=== PATIENT | male | born 1940 | race Caucasian/White ===

== ENCOUNTER → 2017-12-17 | Outpatient (CLI) | payer MEDICARE, BC ==
[~2017-12-17] MED LIST: AMOX TR-K CLV1 EAC4 PO; COLACE 2-IN-11 EACH PO; COLACE100 MG PO; COUMADIN 5 MG TA5 M1 PO; DILTIAZEM 24HR180 M3 PO; HUMALOG100 UNIT/1 SUBQ; IPRATROPIU0.2 MG/1 M INH; LACTULOSE20 GM/30 M PO; LASIX 80 MG TAB80 MG PO; LEVALBUTER1.25 MG/0. INH; MIRALAX17 GM PO; ONDANSETRON HCL4 M2 PO; PREDNISONE 20 M20 MG PO; PROTONIX40 M2 PO; ROBITUSSIN100 MG/53 PO; SPIRONOLACTONE25 M1 PO; TESSALON PERLE100 MG PO; TRAMADOL 50 MG50 MG PO; TYLENOL325 MG PO
== END ==
LOC: M.ULTRA 09:54
DX: N18.3 Chronic kidney disease, stage 3 (moderate) (principal)

== ENCOUNTER 2018-05-14 12:23 | Inpatient (IN) | payer MEDICARE, BC ==
[~2018-05-14] VITALS: Ht 172.7 cm; Wt 55.8 kg
[~2018-05-14 12:23] MED LIST changes: -COLACE 2-IN-11 EACH PO; -COLACE100 MG PO; -DILTIAZEM 24HR180 M3 PO; -HUMALOG100 UNIT/1 SUBQ; -IPRATROPIU0.2 MG/1 M INH; -LACTULOSE20 GM/30 M PO; -LASIX 80 MG TAB80 MG PO; -LEVALBUTER1.25 MG/0. INH; -MIRALAX17 GM PO; -ONDANSETRON HCL4 M2 PO; -PREDNISONE 20 M20 MG PO; -PROTONIX40 M2 PO; -ROBITUSSIN100 MG/53 PO; -SPIRONOLACTONE25 M1 PO; -TESSALON PERLE100 MG PO; -TRAMADOL 50 MG50 MG PO; -TYLENOL325 MG PO
[2018-05-14 12:26] VITALS: BP 92/53
[2018-05-14] MEDS ORDERED: DILTIAZEM 24HR180 M3 PO (12:36)
[2018-05-14] MEDS ORDERED: TESSALON PERLE100 MG PO (12:36)
[2018-05-14] MEDS ORDERED: IPRATROPIU0.2 MG/1 M INH (12:37)
[2018-05-14] MEDS ORDERED: ROBITUSSIN100 MG/53 PO (12:37)
[2018-05-14] MEDS ORDERED: LASIX 80 MG TAB80 MG PO (12:37)
[2018-05-14] MEDS ORDERED: COLACE 2-IN-11 EACH PO (12:38)
[2018-05-14] MEDS ORDERED: MIRALAX17 GM PO (12:38)
[2018-05-14] MEDS ORDERED: PREDNISONE 20 M20 MG PO (12:38)
[2018-05-14] MEDS ORDERED: SPIRONOLACTONE25 M1 PO (12:39)
[2018-05-14] MEDS ORDERED: COUMADIN 5 MG TA5 M1 PO (12:39)
[2018-05-14 13:03] LABS: HEMATOCRIT 35.3 % (42.0-52.0); HEMOGLOBIN 11.7 gm/dL (14.0-18.0); MCH 28.9 pg (26.0-34.0); MCV 87.5 fL (80.0-100.0); MPV 8.4 fl. (7.2-11.1); NUCLEATED RBCS 0 /100WBC; PLATELET COUNT* 165 thou/uL (150-400); RBC 4.03 mil/uL (4.50-6.00); RDW-CV 17.3 % (10.5-14.5); WBC 10.2 thou/uL (4.0-11.0)
[2018-05-14 13:11] LABS: PROTIME 66.3 Seconds (9.20-11.50)
[2018-05-14 13:13] LABS: ANION GAP < 0 mmol/L (7-16); BUN 33 mg/dL (7-18); CALCIUM 9.1 mg/dL (8.5-10.1); CHLORIDE 96 mmol/L (98-107); CO2 43 mmol/L (21-32); GLUCOSE 102 mg/dL (70-99); POTASSIUM 4.7 mmol/L (3.5-5.1); SODIUM 136 mmol/L (136-145)
[2018-05-14 13:18] LABS: INR 6.6
[2018-05-14 13:25] LABS: ABSOLUTE EOSINOPHILS 0.1 thou/uL (0.0-0.7); ABSOLUTE LYMPHOCYTES 0.2 thou/uL (0.8-5.3); ABSOLUTE MONOCYTES 0.2 thou/uL (0.0-1.2); ABSOLUTE NEUTROPHILS 9.7 thou/uL (1.6-8.1); ANISOCYTOSIS 1+; PLATELET ESTIMATE ADEQUATE; POIKILOCYTOSIS 1+
[2018-05-14 13:26] LABS: ALBUMIN 2.9 g/dL (3.4-5.0); ALKALINE PHOSPHATASE 234 U/L (46-116); NT-PRO BRAIN NAT PEPTIDE 2124 pg/mL (<300); SGOT 33 U/L (15-37); SGPT 77 U/L (30-65); TOTAL BILIRUBIN 3.2 mg/dL (<0.1-1.0); TOTAL PROTEIN 7.6 g/dL (6.4-8.2); TROPONIN-I LEVEL 0.17 ng/mL (<0.06)
--- NOTE | 2018-05-14 15:48 | EKG ---
[place] [address] ELECTROCARDIOGRAM REPORT Name: CONCEPCION DELEON Gabi Room: [place] [address] ADM IN .R.#: [id number] Admission: 05/14/18 Attend Phys: Gera Castillo MD Discharge: Date of : 38 Report #: [id number] THIS REPORT FOR: //name// [facility] ED Test Date: 2018-05-14 Test Time: 12:32:31 Pat Name: CONCEPCION DELEON Department: Room: [facility] Gender: Mixer Helper: Jacob GAN : 1940 Requested By: Eduardo Reynoso Order Number: [id number] MD: Marquis Tabor Measurements Intervals [place] Rate: 81 P: OK: QRS: 24 QRSD: 95 T: 176 QT: 348 QTc: 404 Interpretive Statements Atrial fibrillation Probable LVH with secondary repol abnrm Inferior infarct, old Baseline wander in lead(s) V5,V6 Compared to ECG 05/04/2015 14:00:28 Sinus rhythm no longer present Electronically Signed On 05-14-2018 15:48:25 CDT by Marquis Tabor [email or web address] <ELECTRONICALLY SIGNED> By: Marquis Tabor MD, [facility] 05/14/18 1548 1232 1232 Marquis Tabor MD, [facility] /EPI
[2018-05-14 17:08] VITALS: BP 113/55
[2018-05-14 17:30] VITALS: BP 109/49
[2018-05-14 20:00] VITALS: BP 122/35
[2018-05-14 20:52] LABS: BE 13.7 mmol/L (-2 to +3); pH 7.347 (7.340-7.450)
[2018-05-14 20:54] LABS: PCO2 79.8 mmHg (35.0-45.0); PO2 149.2 mmHg (75.0-100.0)
[2018-05-14 20:55] LABS: HCO3 42.8 mmol/L (22.0-26.0)
[2018-05-15] VITALS: BP 135/57
[2018-05-15 04:00] VITALS: BP 153/81
[2018-05-15 04:50] LABS: ABSOLUTE LYMPHOCYTES 0.3 thou/uL (0.8-5.3); ABSOLUTE MONOCYTES 0.1 thou/uL (0.0-1.2); ABSOLUTE NEUTROPHILS 9.6 thou/uL (1.6-8.1); BASOPHILS 0.1 %; HEMATOCRIT 35.5 % (42.0-52.0); HEMOGLOBIN 11.6 gm/dL (14.0-18.0); LYMPHOCYTES 2.5 %; MCH 28.4 pg (26.0-34.0); MCHC 32.7 g/dL (28.0-37.0); MCV 86.8 fL (80.0-100.0); MONOCYTES 1.4 %; NUCLEATED RBCS 0 /100WBC; PLATELET COUNT* 185 thou/uL (150-400); RBC 4.09 mil/uL (4.50-6.00); RDW-CV 17.4 % (10.5-14.5)
[2018-05-15 04:58] LABS: PROTIME 63.1 Seconds (9.20-11.50)
[2018-05-15 05:13] LABS: INR 6.2
[2018-05-15 05:15] LABS: CALCIUM 9.6 mg/dL (8.5-10.1); MAGNESIUM 2.1 mg/dL (1.8-2.4); POTASSIUM 5.2 mmol/L (3.5-5.1)
[2018-05-15 05:39] LABS: HCO3 39.5 mmol/L (22.0-26.0); pH 7.353 (7.340-7.450)
[2018-05-15 05:42] LABS: PCO2 72.6 mmHg (35.0-45.0)
[2018-05-15 08:13] VITALS: BP 163/70
[2018-05-15 12:00] VITALS: BP 131/63
[2018-05-15 20:00] VITALS: BP 127/63
[2018-05-16] VITALS (7 sets, daily range): BP systolic 110–130; BP diastolic 41–66
[2018-05-16 04:40] LABS: ABSOLUTE LYMPHOCYTES 0.4 thou/uL (0.8-5.3); ABSOLUTE MONOCYTES 0.4 thou/uL (0.0-1.2); BASOPHILS 0.3 %; HEMATOCRIT 34.6 % (42.0-52.0); HEMOGLOBIN 11.4 gm/dL (14.0-18.0); LYMPHOCYTES 3.6 %; MCH 28.7 pg (26.0-34.0); MCV 86.8 fL (80.0-100.0); MONOCYTES 4.1 %; MPV 8.7 fl. (7.2-11.1); NUCLEATED RBCS 0 /100WBC; PLATELET COUNT* 207 thou/uL (150-400); RBC 3.98 mil/uL (4.50-6.00); RDW-CV 17.2 % (10.5-14.5); WBC 10.8 thou/uL (4.0-11.0)
[2018-05-16 04:52] LABS: PROTIME 54.1 Seconds (9.20-11.50)
[2018-05-16 05:01] LABS: MAGNESIUM 2.3 mg/dL (1.8-2.4)
[2018-05-16 05:03] LABS: ALKALINE PHOSPHATASE 264 U/L (46-116); ANION GAP < 0 mmol/L (7-16); BUN 56 mg/dL (7-18); CALCIUM 9.7 mg/dL (8.5-10.1); CHLORIDE 96 mmol/L (98-107); CO2 41 mmol/L (21-32); CREATININE 1.2 mg/dL (0.6-1.3); GLUCOSE 97 mg/dL (70-99); POTASSIUM 5.2 mmol/L (3.5-5.1); SGOT 41 U/L (15-37); SGPT 100 U/L (30-65); SODIUM 136 mmol/L (136-145); TOTAL BILIRUBIN 3.5 mg/dL (<0.1-1.0); TOTAL PROTEIN 7.1 g/dL (6.4-8.2)
[2018-05-16 05:17] LABS: INR 5.3
--- NOTE | 2018-05-16 12:19 | CON ---
[address] [address] CONSULTATION Name: CONCEPCION DELEON Room: [address] ADM IN M.R.#: [id number] Admission: 05/14/18 Attend Phys: Gera Castillo MD Discharge: Date of : 38 Report #: [id number] THIS REPORT FOR: //name// CC: Gera Mahoney HISTORY OF PRESENT ILLNESS: I was asked by Dr. Castillo to see this 77-year-old white male in Cardiology consultation for evaluation and treatment of congestive heart failure. Additionally, this man may have pneumonia. He is known to have chronic atrial fibrillation. He does have coagulopathy secondary to Coumadin. I believe his INR was 6 when he came in. He does have elevated troponins that may be chronically elevated in that they were 0.17, 0.18 and 0.17. He was just discharged from [facility] 2 days ago and was there for shortness of breath. He had a number of things done. We have the records, but they are very complicated. When he was first admitted, his says that he was felt to have pneumonia. He is a poor historian. He does have a history of weight loss. He had an aortic valve replacement in 1991. He does have chronic atrial fibrillation. He is on Coumadin for that. His aortic valve replacement is a mechanical valve. He has had an [place], I believe in 2004 with coronary stent at that time. He is known to have reduced left ventricular systolic function and moderate or moderately severe aortic insufficiency. We cannot find an echo report as of yet. On admission, his chest x-ray was said to possibly represent congestive heart failure with asymmetric pulmonary edema and asymmetrical pleural effusions. Right lung pneumonia was also a consideration on the chest x-ray. While he was at [facility], he had both liver biopsy and thoracentesis. She says that she was never told exactly what was wrong with him. He is better since he was admitted here. All that has been done since he came in here was that he has been diuresed a bit. His admission NT-proBNP was 2124, subsequently one today was 2425. He denies any chest pain or angina. He currently denies any dyspnea on exertion, shortness of breath at rest, orthopnea, PND or edema. He has not had syncope. Coronary risk factors are fairly unremarkable. He has not been a smoker. Does not have hypercholesterolemia, diabetes or high blood pressure, but there is a family history of coronary artery disease and he has had some renal failure in the past. His most recent creatinine now is normal, although his most recent BUN is 41. His creatinine here was 1.0. His estimated GFR was 72. 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 He has not had strokes or TIAs or bruits or claudication or open or nonhealing wounds. He did have lung surgery 2-1/2 years ago. He has been told now that he has COPD. FAMILY HISTORY: Remarkable for his mother, father and sister having heart problems, in particular heart attacks I believe. ALLERGIES: He has no known allergies. HOME MEDICATIONS: Included Tessalon Perles 100 mg q.6h. p.r.n., diltiazem CD 180 mg daily, furosemide 80 mg daily most recently, although he was on 40 mg daily before he went in the hospital at [facility]. He has been on [facility] [address] [place] [address] CONSULTATION Name: CONCEPCION DELEON Room: [address] ADM IN M.R.#: [id number] Admission: 05/14/18 Attend Phys: Gera Castillo MD Discharge: Date of : 38 Report #: [id number] 600 mg b.i.d., Atrovent inhalations q.6h. p.r.n., MiraLax 17 grams daily, prednisone 20 mg daily, spironolactone 25 mg daily and warfarin 5 mg daily. His warfarin has been held. REVIEW OF SYSTEMS: Positive for weakness, weight loss, pneumonia, wheezing, chest discomfort, shortness of breath with exercise, extremity edema, wearing glasses and decreased hearing. Note, he has not had edema lately. PHYSICAL EXAMINATION: GENERAL: He presents as well-developed, well-nourished white male in no acute distress. VITAL SIGNS: Blood pressure is 153/81. Pulse was 116 earlier this morning; currently, it is running around 90. Respirations 32 earlier this morning;; currently, he is running around 28. Temperature is 98.1. HEENT: His head was atraumatic. Eyes clear. NECK: Supple. There is no jugular venous distention or hepatojugular reflux. Thyroid is not enlarged. There is no adenopathy. SKIN: Warm and dry. Mucous membranes are moist. LUNGS: Reveal decreased breath sounds bilaterally with an increased expiratory phase. HEART: Revealed normal first and second heart sound. There is no S4, no S3; no murmurs, rubs, thrills, heaves or gallops. PMI is nondisplaced. Heart tones were somewhat distant. I do not hear an AI murmur. The rhythm was irregularly irregular, the rate was around 80. PMI is not displaced. ABDOMEN: Soft, flat, nontender, no palpable masses, no organomegaly. EXTREMITIES: Reveal no cyanosis, clubbing or edema. NEUROLOGIC: The patient mentated normally, did not talk much, but could move all extremities normally. DIAGNOSTIC DATA: EKG shows atrial fibrillation, heart rate was 81. There are nonspecific ST-T abnormalities and there is an old inferior infarct. There is probable LVH with secondary repolarization abnormality. IMPRESSION: 1. Probable mild congestive heart failure. 2. Probable pneumonia that is resolving. Note, he had a full week's worth of antibiotics at [facility]. 3. Chronic atrial fibrillation. 4. Coagulopathy secondary to Coumadin excess. 5. Elevated troponin. Elevated troponins are likely chronic. 6. Status post aortic valve replacement. 7. Moderately severe aortic insufficiency. 8. Status post myocardial infarction in the distant past. 9. Status post coronary artery stent in the distant past. RECOMMENDATION: I would decrease the rate of diuresis [place] [address] CONSULTATION Name: CONCEPCION DELEON Room: [address] IN [facility]#: [id number] Admission: 05/14/18 Attend Phys: Gera Castillo MD Discharge: Date of : 38 Report #: [id number] strongly consider giving him more antibiotics. I checked a flu test. Thank you very much for asking me to see the patient. If there are any questions, please feel free to contact me. <ELECTRONICALLY SIGNED> By: Leslee Beaver MD, [facility] 05/16/18 1219 1300 [id number]. Javi Beaver MD, [facility] /nt
--- NOTE | 2018-05-16 19:34 | CON ---
[address] [address] CONSULTATION Name: CONCEPCION DELEON Room: [address] IN M.R.#: [id number] Admission: 05/14/18 Attend Phys: Gera Castillo MD Discharge: Date of : 39 Report #: [id number] THIS REPORT FOR: //name// CC: Gera Mahoney DATE OF SERVICE: 05/15/2018 HISTORY OF PRESENT ILLNESS: This is a 77-year-old male patient who does not provide a very reliable history. He does not have much speech output. I tried to talk to the patient, but was not able to talk to him. Subsequently, I called the patient's and was able to get hold of her. She gives a history that the patient had a code blue, which she believes was on 05/05/2018. He had to be intubated. After the intubation the patient was seen by a neurologist. He was able to answer yes or no questions, but he was intubated. So it is not clear how his voice was. Now, his voice is very difficult to come out. Interesting history is that this patient was intubated more than 20 years ago for his valve replacement. He had pretty similar symptoms at that time. His speech got affected and it took several months for it to recover. He does appear to have pretty significant speech difficulty. REVIEW OF SYSTEMS: Indicate that when I asked the family, it looks like this patient had some swallowing difficulty for which the patient has been seen by Speech Therapy. The patient has a severe respiratory problem. He is being followed by Pulmonary. He has been admitted to [facility] with multiple problems. He had prior history of liver problems. He had a valve replaced. He is on anticoagulation. He has a history of atrial fibrillation. He has a history of COPD and pleural effusion. I carried out the 14-point review of systems and this was his relevant 14-point review of systems. PAST MEDICAL HISTORY: Positive for valve replacement and atrial fibrillation. FAMILY HISTORY: Noncontributory. It is negative for any early age stroke. SOCIAL HISTORY: He is and I talked to his . He has a prior history of smoking, but does not drink any alcohol. PHYSICAL EXAMINATION: Indicates he is alert. He is responsive. His words just do not come out. When I pushed him, he says that the month is 11th. He follows commands. Rest of the higher function is not possible because of that. Cranial nerve examination 2-12 looks mostly unremarkable. He moves all 4 extremities. He is weak to some extent in all 4 extremities. His position sense is intact. His reflexes are symmetrical. I could not look at the patient's fundus. He does have respiratory difficulty for which he is being followed by Pulmonary. His heart appeared to be irregular. Blood pressure is 131/63, respiration is 16, pulse is 95, temperature is 98.4. [place] [address] CONSULTATION Name: CONCEPCION DELEON Room: [address] IN .R.#: [id number] Admission: 05/14/18 Attend Phys: Gera Castillo MD Discharge: Date of : 39 Report #: [id number] IMPRESSION: 1. Speech difficulty. That appeared to be secondary to mechanical problem. He needs an ENT consult to look at his vocal cord to make sure no damage occurred during intubation. It is interesting that he had vocal cord damage when the intubation was done more than 20 years ago for his valve replacement surgery. 2. Generalized weakness that is most likely because of systemic problems. 3. He is on anticoagulation. I will do a CT to exclude any other pathology. RECOMMENDATIONS: 1. Myasthenia markers as an outpatient because the hospital policy is that those should be done as an outpatient. 2. ENT consult whenever possible. I spent more than 50 minutes of time taking care of this patient today and majority of the time was spent counseling this patient and subsequently his as well as coordinating his care. <ELECTRONICALLY SIGNED> By: Edgard Louie MD 05/16/18 1934 1501 1855Edgard Louie MD /nt
--- NOTE | 2018-05-16 19:34 | EEG ---
[address] [address] EEG STUDY REPORT Name: PANCHOCONCEPCION Gabi Room: [address] IN M.R.#: [id number] Admission: 05/14/18 Attend Phys: Gera Castillo MD Discharge: Date of : 39 Report #: [id number] THIS REPORT FOR: //name// CC: Gera Mahoney DATE OF SERVICE: 05/16/2018 This patient is being evaluated for altered mental status. EEG was done by placing the electrodes by standard 10-20 system of electrode placement. Both referential and sequential montages were used for recording. Background activity in this patient's EEG is about 7 Hz and 30 microvolt. The patient went to sleep that is associated with even more slowing and vertex sharp waves. Photic stimulation was unremarkable. IMPRESSION: This is an abnormal electroencephalogram because it is disorganized and poorly formed. That is a nonspecific abnormality, which can occur with encephalopathy, effect of psychotropic medication, dementia, etc. Clinical correlation is recommended. <ELECTRONICALLY SIGNED> By: Edgard Louie MD 05/16/18 1934 1629 1636Edgard Louie MD /nt
[2018-05-17 04:00] VITALS: BP 118/52
[2018-05-17 04:37] LABS: PROTIME 67.6 Seconds (9.20-11.50)
[2018-05-17 04:46] LABS: INR 6.7
[2018-05-17 04:51] LABS: ABSOLUTE LYMPHOCYTES 0.2 thou/uL (0.8-5.3); ABSOLUTE MONOCYTES 0.3 thou/uL (0.0-1.2); ABSOLUTE NEUTROPHILS 12.4 thou/uL (1.6-8.1); BASOPHILS 0.2 %; HEMATOCRIT 33.8 % (42.0-52.0); HEMOGLOBIN 10.9 gm/dL (14.0-18.0); LYMPHOCYTES 1.4 %; MCH 28.3 pg (26.0-34.0); MCHC 32.3 g/dL (28.0-37.0); MCV 87.7 fL (80.0-100.0); MONOCYTES 2.1 %; MPV 8.7 fl. (7.2-11.1); NUCLEATED RBCS 0 /100WBC; PLATELET COUNT* 152 thou/uL (150-400); POLYS 96.3 %; RBC 3.85 mil/uL (4.50-6.00); RDW-CV 17.1 % (10.5-14.5); WBC 12.8 thou/uL (4.0-11.0)
[2018-05-17 04:52] LABS: ALBUMIN 2.5 g/dL (3.4-5.0); ALKALINE PHOSPHATASE 235 U/L (46-116); ANION GAP < 0 mmol/L (7-16); BUN 59 mg/dL (7-18); CHLORIDE 101 mmol/L (98-107); CO2 41 mmol/L (21-32); CREATININE 1.2 mg/dL (0.6-1.3); GLUCOSE 98 mg/dL (70-99); SGOT 50 U/L (15-37); SGPT 103 U/L (30-65); SODIUM 139 mmol/L (136-145); TOTAL BILIRUBIN 3.3 mg/dL (<0.1-1.0); TOTAL PROTEIN 6.7 g/dL (6.4-8.2)
[2018-05-17 07:45] VITALS: BP 120/54
--- NOTE | 2018-05-17 07:56 | CON ---
[address] [address] CONSULTATION Name: CONCEPCION DELEON Room: [address] IN M.R.#: [id number] Admission: 05/14/18 Attend Phys: Gera Castillo MD Discharge: Date of : 38 Report #: [id number] THIS REPORT FOR: //name// CC: Gera Mahoney DATE OF SERVICE: 05/16/2018 ATTENDING PHYSICIAN: Gera Castillo M.D. REASON FOR EVALUATION: Febrile illness in the setting of probable pneumonitis. HISTORY OF PRESENT ILLNESS: Chart reviewed, the patient examined. This is a 77-year-old with a history of aortic valve replacement 26 years ago, has underlying cardiomyopathy, was actually hospitalized after a brief stay at home due to progressive dyspnea. Spouse gives most of the details of the history. He was hospitalized with respiratory insufficiency, ended up being intubated, underwent a thoracentesis, which led to some sort of cardiac arrest. He was evaluated including imaging, which did suggest bilateral pleural effusions, infiltrates on chest x-ray. He was found to have elevated LFTs that has been evaluated including no evidence of viral hepatitis. He has been undergoing gentle diuresis, at one point was felt to be quite dehydrated per spouse. Over the course of the last evening, temperature went to 104 degrees Fahrenheit. At this point this morning, he is afebrile, however, is quite somnolent. He was started on a combination of vancomycin, piperacillin/tazobactam. ALLERGIES: None known. CURRENT MEDICATIONS: Include vancomycin, Zosyn, lactulose, insulin, guaifenesin, prednisone, p.r.n. analgesics, antiemetics. PAST MEDICAL HISTORY: As described above, aortic valve replacement, history of atrial fibrillation. SOCIAL HISTORY: Nonsmoker, no ethanol. FAMILY HISTORY: Noncontributory. REVIEW OF SYSTEMS: Limited. PHYSICAL EXAMINATION: GENERAL: He appears cachectic. He is clearly malnourished, is chronically ill appearing. VITAL SIGNS: Temperature 97.7 with a T-max earlier 104.0, although there was a temperature-pulse dissociation, varying only 40 beats per minutes between his temperatures; respirations 22, blood pressure is 130/55[place] [address] CONSULTATION Name: CONCEPCION DELEON Room: [address] IN [facility]#: [id number] Admission: 05/14/18 Attend Phys: Gera Castillo MD Discharge: Date of : 38 Report #: [id number] SKIN: Warm, dry, no rashes. NECK: Supple. HEENT: He has got nasal cannula oxygen at 2 liters. LUNGS: Scattered, coarse breath sounds. HEART: Regular, tachycardic. He does have a murmur. ABDOMEN: Soft. There are no peritoneal signs. GENITOURINARY: Deferred. RECTAL: Deferred. LABORATORY DATA: Chest x-ray shows a large cardiac silhouette, diffuse bilateral interstitial opacities, bilateral pleural effusions. Electrolytes: Sodium 136, potassium 5.2, chloride 96, bicarbonate is 41, BUN and creatinine 56 and 1.2, glucose of 97, ALT of 100, AST of 41, total bilirubin of 3.5, albumin 3.0, total protein 7.1. CRP of 8.0. CBC: White count 10.8, H and H 11.4 and 34.6, platelets 207. ABGs, pH 7.353, pCO2 of 72.6, pO2 of 103.0, FiO2 of 30% on BiPAP. ASSESSMENT: Pneumonitis, likely multifactorial. I think there is certainly a component of volume overload, with nosocomial fevers certainly raises question of possibility of focus of pyogenic bacterial infection including pneumonitis, given his altered mental status certainly at risk for aspiration. He was started on broad-spectrum antimicrobial therapy, I think this is reasonable. His situation clearly is tenuous at this point. Did discuss in detail with his spouse. <ELECTRONICALLY SIGNED> By: Zaheer Vasquez MD 05/17/18 0756 1049 1520Jomike Vasquez MD /nt
[2018-05-17 11:52] VITALS: BP 106/41
--- NOTE | 2018-05-17 13:41 | 2DMMODE ---
[place] [address] 2 D/M-MODE ECHOCARDIOGRAM Name: CONCEPCION DELEON Room: [address] IN M.R.#: [id number] Admission: 05/14/18 Attend Phys: Gera Castillo, Discharge: Date of : 38 Date of Service: 05/17/18 1341 Report #: [id number] THIS REPORT FOR: //name// APPROVED REPORT Study performed: 05/17/2018 09:51:57 EXAM: Comprehensive 2D, Doppler, and color-flow Echocardiogram Patient Location: Bedside BSA: 1.63 HR: 80 bpm BP: 120/54 mmHg Other Information Study Quality: Good Indications Atrial Fibrillation 2D Dimensions IVSd: 12.50 (7-11mm) LVOT Diam: 13.01 (18-24mm) LVDd: 43.20 mm PWd: 11.23 (7-11mm) Ascending Ao: 26.42 (22-36mm) LVDs: 31.39 (25-40mm) Aortic Root: 21.50 mm Volumes Left Atrial Volume (Systole) LA ESV Index: 28.80 mL/m2 Aortic Valve AoV Peak Phoenix.: 2.51 m/s AO Peak Gr.: 25.19 mmHg LVOT Max P.98 mmHg AO Mean Gr.: 10.99 mmHg LVOT Mean P.14 mmHg LVOT Max V: 1.22 m/s AO V2 VTI: 37.55 cm LVOT Mean V: 0.82 m/s ALEX (VTI): 0.69 cm2 LVOT V1 VTI: 19.39 cm Mitral Valve E/A Ratio: 3.25 MV Decel. Time: 165.76 ms MV E Max Phoenix.: 1.45 m/s MV PHT: 48.07 ms MVA (PHT): 4.58 cm2 [place] [address] 2 D/M-MODE ECHOCARDIOGRAM Name: CONCEPCION DELEON Room: [address] IN M.R.#: [id number] Admission: 05/14/18 Attend Phys: Gera Castillo, Discharge: Date of : 38 Date of Service: 05/17/18 1341 Report #: [id number] TDI E/Lateral E': 20.71 E/Medial E': 20.71 Medial E' Phoenix.: 0.07 m/s Lateral E' Phoenix.: 0.07 m/s Pulmonary Valve PV Peak Phoenix.: 1.11 m/s PV Peak Gr.: 4.93 mmHg Tricuspid Valve RAP Estimate: 10.00 mmHg TR Peak Gr.: 37.95 mmHg RVSP: 47.95 mmHg PA Pressure: 47.95 mmHg Left Ventricle The left ventricle is normal size. There is normal LV segmental wall motion. Mild concentric left ventricular hypertrophy. Left ventricular systolic function is normal. The left ventricular ejection fraction is within the normal range. LVEF is 50-55%. Right Ventricle The right ventricle is normal size. The right ventricular systolic function is normal. Atria The left atrium size is normal. Right atrium is dilated. Aortic Valve The Aortic valve is sclerotic. No aortic regurgitation is present. Mild aortic stenosis. Mitral Valve There is mitral annular calcification. Mild mitral regurgitation. No evidence of mitral valve stenosis. Tricuspid Valve The tricuspid valve is normal in structure. Trace tricuspid regurgitation. estimated pa pressure 40 mm hg Pulmonic Valve Pulmonic valve is not well visualized. There is no pulmonic valvular regurgitation. Great Vessels The aortic root is normal in size. [place] [address] 2 D/M-MODE ECHOCARDIOGRAM Name: CONCEPCION DELEON Room: [address] IN [facility]#: [id number] Admission: 05/14/18 Attend Phys: Gera Castillo, Discharge: Date of : 38 Date of Service: 05/17/18 1341 Report #: [id number] Pericardium There is no pericardial effusion. <Conclusion> Mild concentric left ventricular hypertrophy. LVEF is 50-55%. Right atrium is dilated. The Aortic valve is sclerotic. Mild aortic stenosis. Mild mitral regurgitation. Trace tricuspid regurgitation. estimated pa pressure 40 mm hg <ELECTRONICALLY SIGNED> By: Marquis Tabor MD, FACC 05/17/18 134 40 40 Marquis Tabor MD, FACC /INF
[2018-05-17 16:54] VITALS: BP 109/46
[2018-05-17 23:00] VITALS: BP 111/41
[2018-05-18] VITALS: BP 113/51
[2018-05-18 04:00] VITALS: BP 108/48
[2018-05-18 05:17] LABS: HEMATOCRIT 32.7 % (42.0-52.0); HEMOGLOBIN 10.7 gm/dL (14.0-18.0); MCH 29.2 pg (26.0-34.0); MCHC 32.8 g/dL (28.0-37.0); MCV 89.2 fL (80.0-100.0); MPV 8.8 fl. (7.2-11.1); NUCLEATED RBCS 0 /100WBC; PLATELET COUNT* 123 thou/uL (150-400); RBC 3.66 mil/uL (4.50-6.00); RDW-CV 17.8 % (10.5-14.5)
[2018-05-18 05:27] LABS: PROTIME 63.7 Seconds (9.20-11.50)
[2018-05-18 05:36] LABS: ALBUMIN 2.2 g/dL (3.4-5.0); ALKALINE PHOSPHATASE 235 U/L (46-116); ANION GAP < 0 mmol/L (7-16); BUN 57 mg/dL (7-18); CALCIUM 8.9 mg/dL (8.5-10.1); CHLORIDE 107 mmol/L (98-107); CO2 43 mmol/L (21-32); CREATININE 1.1 mg/dL (0.6-1.3); GLUCOSE 111 mg/dL (70-99); POTASSIUM 4.7 mmol/L (3.5-5.1); SGOT 32 U/L (15-37); SGPT 94 U/L (30-65); SODIUM 146 mmol/L (136-145); TOTAL BILIRUBIN 3.2 mg/dL (<0.1-1.0); TOTAL PROTEIN 6.1 g/dL (6.4-8.2)
[2018-05-18 05:39] LABS: INR 6.3
[2018-05-18 06:16] LABS: ABSOLUTE LYMPHOCYTES 0.5 thou/uL (0.8-5.3); ABSOLUTE MONOCYTES 0.2 thou/uL (0.0-1.2); ABSOLUTE NEUTROPHILS 7.4 thou/uL (1.6-8.1); TOXIC GRANULATION Occasional
[2018-05-18 06:17] LABS: ANISOCYTOSIS 1+; HYPOCHROMASIA Occasional; OVALOCYTES Occasional; PLATELET ESTIMATE DECREASED; POIKILOCYTOSIS 1+
[2018-05-18 08:00] VITALS: BP 105/54
[2018-05-18 12:19] VITALS: BP 104/48
--- NOTE | 2018-05-18 12:30 | CON ---
[address] [address] CONSULTATION Name: CONCEPCION DELEON Room: [address] ADM IN M.R.#: [id number] Admission: 05/14/18 Attend Phys: Gera Castillo MD Discharge: Date of : 38 Report #: [id number] THIS REPORT FOR: //name// CC: Gera Mahoney REASON FOR CONSULTATION: Respiratory failure. HISTORY OF PRESENT ILLNESS: This is a 77-year-old male patient who is known to our service from previous hospitalization at [facility]. He was actually discharged from [facility] just a couple of days ago after a prolonged hospitalization. He is known to have congestive heart failure with chronic pleural effusions. He has a mechanical valve, on anticoagulation. 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 Also, during the last hospitalization at [place], he had right-sided thoracentesis. He ended up after that what was most likely felt to be a vasovagal attack and actually a code blue was called. He was intubated overnight and extubated the second day. After thoracentesis, he had hydropneumothorax, possibly trapped lung on the right side too, now the fluid filled up that space. He was sent home, but he, according to the , feels weak, tired and he has some shortness of breath. She was unable to take care of him and she brought him in here. Also during the hospitalization, he had liver biopsy that demonstrated fibrosis, which was felt to be secondary to congestive heart failure, but no definite cirrhosis. He looked cachectic, malnourished and actually the chest x-ray at this facility is similar to the last chest x-ray prior to discharge from [facility]. He had breakfast yesterday. His thought he had some difficulty swallowing. He had no cough, no sputum production. When I saw him, he was on BiPAP. He was placed on BiPAP because his CO2 was high, although his pH was compensated. HOME MEDICATIONS: Diltiazem, Lasix, guaifenesin, DuoNebs, Coumadin, prednisone taper and spironolactone. PAST MEDICAL AND SURGICAL HISTORY: Includes valve replacement therapy in 1991 for aortic valve and mechanical valve, had stent placement. He has AFib. He has history of smoking in the past with possible COPD. He has congestive heart failure with pulmonary infiltrates. SOCIAL HISTORY: Remote history of smoking. He does not drink alcohol. He does not abuse drugs. He does not smoke anymore. REVIEW OF SYSTEMS: He had no fever, no chills, no change in vision. His thought his mental status did not change, although the staff at this facility thought initially he was somewhat confused. He had no nausea, no vomiting. No difficulty with urination. No bleeding from any orifice. The rest of [place] [address] CONSULTATION Name: CONCEPCION DELEON Room: [address] IN .R.#: [id number] Admission: 05/14/18 Attend Phys: Gera Castillo MD Discharge: Date of : 39 Report #: [id number] PHYSICAL EXAMINATION: VITAL SIGNS: On examination, during my visit, he was on BiPAP with saturation more than 90%, blood pressure 135/57, breathing 25 times a minutes, pulse rate of 98 and temperature 37. GENERAL: Thin gentleman who looks chronically ill. Awake, answer questions. HEENT: Head normocephalic, atraumatic. Pupils reactive to light. Not pale or jaundiced. External ears look healthy and normal. Oral cavity not examined because of BiPAP mask in place. NECK: Supple. CHEST: Air movement heard bilaterally, although diminished at the bases. No definite wheezes. HEART: S1, S2, no murmur. ABDOMEN: Soft, lax and nontender. EXTREMITIES: Lower extremity, no edema noted. SKIN: Normal for age and race. No definite rash. NEUROLOGIC: Moving 4 extremities spontaneously. No focal weakness. PSYCHIATRIC: Mood and affect anxious. LABORATORY DATA: His ABGs initially 7.34/79/149. Repeat ABG on BiPAP this morning 7.34/72/103. His white blood count 10.2, hemoglobin 11.7 and platelets 165,000. His INR 6.6 upon hospitalization. His creatinine is 1, chloride is 96, potassium 5.2 and sodium 136. BNP 2425. His chest x-ray showed pleural effusion, which is similar to the chest x-ray seen back prior to discharge from [facility]. IMPRESSION: 1. Acute respiratory failure. 2. Atrial fibrillation. 3. Mechanical aortic valve, valvular heart disease. 4. Congestive heart failure. 5. Weakness. 6. History of trapped lung. PLAN: At this point, I would recommend against thoracentesis given the fact that he had thoracentesis and he had serious complication after thoracentesis, ended up with hydropneumothorax, possibly trapped lung on the left side. I would agree with the diuresis, but would monitor fluid status and electrolytes closely. I did not hear wheezes today, so I would continue the steroid taper. The liver biopsy that was done at [facility] showed fibrosis and suggestive possibly related to congestive heart failure. Continue BiPAP p.r.n. We can take him off the BiPAP and see how he does on 2 liter oxygen. Of note, he required oxygen recently and he has nocturnal oxygen at home. PROGNOSIS: Guarded. [facility] [address] [place] [address] CONSULTATION Name: CONCEPCION DELEON Room: [address] IN .R.#: [id number] Admission: 05/14/18 Attend Phys: Gera Castillo MD Discharge: Date of : 39 Report #: [id number] Thank you for the consult. <ELECTRONICALLY SIGNED> By: Ramiro Moy MD 05/18/18 1230 [id number] [id number] Moy MD /nt
[2018-05-18 16:00] VITALS: BP 122/50
[2018-05-18 20:00] VITALS: BP 119/56
[2018-05-19] VITALS: BP 125/35
[2018-05-19 04:00] VITALS: BP 106/71
[2018-05-19 06:04] LABS: PROTIME 56.6 Seconds (9.20-11.50)
[2018-05-19 06:17] LABS: INR 5.6
[2018-05-19 08:00] VITALS: BP 95/59
[2018-05-19 11:37] LABS: BE 12.8 mmol/L (-2 to +3); pH 7.325 (7.340-7.450)
[2018-05-19 11:38] LABS: PCO2 81.5 mmHg (35.0-45.0); PO2 179.8 mmHg (75.0-100.0)
[2018-05-19 11:39] LABS: HCO3 41.5 mmol/L (22.0-26.0)
--- NOTE | 2018-05-19 12:52 | CON ---
[address] [address] CONSULTATION Name: CONCEPCION DELEON Room: [address] ADM IN M.R.#: [id number] Admission: 05/14/18 Attend Phys: Gera Castillo MD Discharge: Date of : 39 Report #: [id number] THIS REPORT FOR: //name// CC: Gera Mahoney HISTORY OF PRESENT ILLNESS: This is a pleasant 77-year-old gentleman with a past medical history of coronary artery disease, valvular heart disease on chronic anticoagulation who was brought into the hospital because he was progressively weak. The patient was initially admitted to [facility] about 3 weeks back with pneumonia for which he was treated. At that time, the patient appeared to have been severely sick and had suffered a medical code and was resuscitated. Following a prolonged hospital course, the patient was then discharged to home. The patient had a home health nurse who visited him and determined that he was too weak to be at home and therefore, the patient was transferred back to the hospital. At this time, the patient has been brought in to [facility]. The patient's family is at bedside and they provide most of the history since the patient is quite somnolent. GI service has been consulted for evaluation of hyperbilirubinemia and elevated LFTs. The patient's family admits that the patient does appear to get somnolent and confused intermittently since his last hospitalization for the pneumonia. Prior to that, the patient appears to have been doing relatively well. The family denies noticing any jaundice and do not report that the patient had ever complained of any pruritus. The patient also was evaluated for his elevated liver enzymes at [facility]. PAST MEDICAL HISTORY: The patient has a history of valvular heart disease and CHF. PAST SURGICAL HISTORY: The patient had some sort of lung surgery in the past and mechanical heart valve replacement. SOCIAL HISTORY: The patient never smoked or had alcohol or recreational drugs. FAMILY HISTORY: There is no significant family history of liver disease or colorectal cancer. REVIEW OF SYSTEMS: Unable to obtain because of the patient's mental status. PHYSICAL EXAMINATION: VITAL SIGNS: Temperature 36.3, pulse rate 103, respirations 20, blood pressure 116/45. GENERAL: The patient is somnolent, but opens his eyes when his name is called. HEENT: Pupils are equal, round, reactive to light and accommodation. There is scleral icterus present. Mucous membranes are moist. There is no congestion. The patient does appear [place] [address] CONSULTATION Name: CONCEPCION DELEON Room: [address] IN ..#: [id number] Admission: 05/14/18 Attend Phys: Gera Castillo MD Discharge: Date of : 39 Report #: [id number] CARDIOVASCULAR: Irregularly irregular rate. ABDOMEN: Soft. There is no distention, no guarding and no rigidity. EXTREMITIES: Warm and well perfused. There is no edema. LABORATORY DATA: Hemoglobin 11.4, hematocrit 34.6, platelet count 207 and WBC count 10.8. Sodium 136, potassium 5.2, chloride 96, BUN 56, creatinine 1.2, total bilirubin 3.5, direct bilirubin 3.1, AST 41, ALT 100, alkaline phosphatase 264. CT abdomen and pelvis demonstrates distal colonic diverticulosis without evidence of diverticulitis, normal appearing liver and spleen. ASSESSMENT AND PLAN: This is a very pleasant 77-year-old gentleman with past medical history of valvular heart disease and CHF who presented initially to [facility] with pneumonia, subsequently had been transferred to home, but was transferred back because he appeared quite ill. GI service has been consulted for evaluation of elevated liver enzymes. I reviewed the records from his hospitalization at [facility] and it appears that the patient had complete evaluation including workup for autoimmune hepatitis and viral hepatitis and all of the above were negative. The patient underwent a transjugular liver biopsy with wedge pressure measurement. This demonstrated fibrosis of the liver along with a normal portal wedge pressure measurement. I would place the patient on lactulose and rifaximin to see if his mental status would improve. Since a complete liver workup has already been done at the outside facility, I do not recommend repeating any of it and since there is no increase in portal wedge pressure measurement, I do not see a role for endoscopy to screen for varices at this time. Thank you for this consult. <ELECTRONICALLY SIGNED> By: Sekou Burger MD 05/19/18 1252 [id number] Burger MD /nt
[2018-05-19 13:35] VITALS: BP 112/42
[2018-05-19 16:13] VITALS: BP 111/58
[2018-05-19 19:50] VITALS: BP 116/41
[2018-05-20] VITALS: BP 126/45
[2018-05-20 04:00] VITALS: BP 132/50
[2018-05-20 04:48] LABS: ABSOLUTE LYMPHOCYTES 0.3 thou/uL (0.8-5.3); ABSOLUTE MONOCYTES 0.2 thou/uL (0.0-1.2); ABSOLUTE NEUTROPHILS 10.2 thou/uL (1.6-8.1); BASOPHILS 0.1 %; HEMATOCRIT 28.1 % (42.0-52.0); HEMOGLOBIN 9.1 gm/dL (14.0-18.0); LYMPHOCYTES 2.8 %; MCH 29.5 pg (26.0-34.0); MCHC 32.5 g/dL (28.0-37.0); MCV 90.8 fL (80.0-100.0); MONOCYTES 1.8 %; NUCLEATED RBCS 0 /100WBC; PLATELET COUNT* 127 thou/uL (150-400); POLYS 95.3 %; RBC 3.09 mil/uL (4.50-6.00); RDW-CV 18.5 % (10.5-14.5); WBC 10.7 thou/uL (4.0-11.0)
[2018-05-20 04:52] LABS: PROTIME 59.7 Seconds (9.20-11.50)
[2018-05-20 05:08] LABS: ANION GAP < 0 mmol/L (7-16); BUN 46 mg/dL (7-18); CALCIUM 8.9 mg/dL (8.5-10.1); CHLORIDE 117 mmol/L (98-107); CREATININE 0.9 mg/dL (0.6-1.3); MAGNESIUM 2.3 mg/dL (1.8-2.4); POTASSIUM 5.1 mmol/L (3.5-5.1); SODIUM 156 mmol/L (136-145)
[2018-05-20 05:14] LABS: INR 5.9
[2018-05-20 05:21] LABS: CO2 41 mmol/L (21-32); GLUCOSE 182 mg/dL (70-99)
[2018-05-20 07:45] VITALS: BP 132/51
[2018-05-20 12:00] VITALS: BP 107/60
[2018-05-20 15:44] LABS: ANION GAP < 0 mmol/L (7-16); BUN 47 mg/dL (7-18); CALCIUM 8.9 mg/dL (8.5-10.1); CHLORIDE 119 mmol/L (98-107); CO2 41 mmol/L (21-32); GLUCOSE 218 mg/dL (70-99); POTASSIUM 4.8 mmol/L (3.5-5.1); SODIUM 158 mmol/L (136-145)
[2018-05-20 16:00] VITALS: BP 116/49
[2018-05-20 19:40] VITALS: BP 101/43
[2018-05-21] VITALS: BP 106/49
[2018-05-21 04:00] VITALS: BP 110/50
[2018-05-21 06:33] LABS: HEMATOCRIT 25.5 % (42.0-52.0); MCHC 31.3 g/dL (28.0-37.0); MCV 92.6 fL (80.0-100.0); RBC 2.75 mil/uL (4.50-6.00); RDW-CV 19.2 % (10.5-14.5); WBC 12.4 thou/uL (4.0-11.0)
[2018-05-21 06:43] LABS: PROTIME 54.8 Seconds (9.20-11.50)
[2018-05-21 06:47] LABS: CALCIUM 9.2 mg/dL (8.5-10.1); INR 5.4; MAGNESIUM 2.5 mg/dL (1.8-2.4); POTASSIUM 4.9 mmol/L (3.5-5.1)
[2018-05-21 07:59] VITALS: BP 113/55
[2018-05-21 12:00] VITALS: BP 109/50
[2018-05-21 15:14] LABS: CALCIUM 8.7 mg/dL (8.5-10.1); CREATININE 1.2 mg/dL (0.6-1.3); POTASSIUM 4.7 mmol/L (3.5-5.1)
[2018-05-21 16:00] VITALS: BP 123/55
[2018-05-21 20:00] VITALS: BP 123/47
[2018-05-21 20:09] LABS: ANION GAP < 0 mmol/L (7-16); BUN 55 mg/dL (7-18); CALCIUM 8.9 mg/dL (8.5-10.1); CHLORIDE 119 mmol/L (98-107); CO2 40 mmol/L (21-32); CREATININE 1.1 mg/dL (0.6-1.3); GLUCOSE 225 mg/dL (70-99); POTASSIUM 4.8 mmol/L (3.5-5.1); SODIUM 157 mmol/L (136-145)
[2018-05-22 00:21] VITALS: BP 111/53
[2018-05-22 04:00] VITALS: BP 111/60
[2018-05-22 05:20] LABS: HEMATOCRIT 23.9 % (42.0-52.0); HEMOGLOBIN 7.6 gm/dL (14.0-18.0); MCH 29.7 pg (26.0-34.0); MCHC 31.9 g/dL (28.0-37.0); MCV 93.2 fL (80.0-100.0); MPV 9.4 fl. (7.2-11.1); RBC 2.57 mil/uL (4.50-6.00); RDW-CV 19.7 % (10.5-14.5); WBC 9.8 thou/uL (4.0-11.0)
[2018-05-22 05:49] LABS: PROTIME 50.9 Seconds (9.20-11.50)
[2018-05-22 06:06] LABS: CALCIUM 8.8 mg/dL (8.5-10.1); CREATININE 1.1 mg/dL (0.6-1.3); MAGNESIUM 2.3 mg/dL (1.8-2.4); POTASSIUM 5.2 mmol/L (3.5-5.1); TOTAL BILIRUBIN 2.3 mg/dL (<0.1-1.0)
[2018-05-22 08:16] VITALS: BP 116/51
[2018-05-22 11:47] VITALS: BP 107/69
[2018-05-22] MEDS ORDERED: TRAMADOL 50 MG50 MG PO (12:48)
[2018-05-22 20:00] VITALS: BP 158/67
[2018-05-23] VITALS: BP 114/49
[2018-05-23 04:55] VITALS: BP 94/51
[2018-05-23 05:06] LABS: HEMOGLOBIN 7.2 gm/dL (14.0-18.0); MPV 9.5 fl. (7.2-11.1)
[2018-05-23 05:08] LABS: HEMATOCRIT 22.3 % (42.0-52.0); MCH 30.1 pg (26.0-34.0); MCHC 32.3 g/dL (28.0-37.0); MCV 93.1 fL (80.0-100.0); RBC 2.4 mil/uL (4.50-6.00); RDW-CV 19.5 % (10.5-14.5); WBC 8.7 thou/uL (4.0-11.0)
[2018-05-23 05:17] LABS: PROTIME 54.5 Seconds (9.20-11.50)
[2018-05-23 05:26] LABS: ALBUMIN 1.9 g/dL (3.4-5.0); ALKALINE PHOSPHATASE 208 U/L (46-116); ANION GAP < 0 mmol/L (7-16); BUN 51 mg/dL (7-18); CALCIUM 8.8 mg/dL (8.5-10.1); CHLORIDE 110 mmol/L (98-107); CO2 38 mmol/L (21-32); CREATININE 1.1 mg/dL (0.6-1.3); GLUCOSE 101 mg/dL (70-99); MAGNESIUM 2.1 mg/dL (1.8-2.4); POTASSIUM 5.1 mmol/L (3.5-5.1); SGOT 30 U/L (15-37); SGPT 80 U/L (30-65); TOTAL BILIRUBIN 2.6 mg/dL (<0.1-1.0); TOTAL PROTEIN 4.9 g/dL (6.4-8.2)
[2018-05-23 05:35] LABS: SODIUM 146 mmol/L (136-145)
[2018-05-23 06:04] LABS: INR 5.4
[2018-05-23 08:00] VITALS: BP 107/41
[2018-05-23 12:00] VITALS: BP 107/44
[2018-05-23 16:45] VITALS: BP 96/34
[2018-05-23 20:30] VITALS: BP 108/58
[2018-05-24] VITALS (7 sets, daily range): BP systolic 100–163; BP diastolic 41–76
[2018-05-24 06:06] LABS: HEMATOCRIT 21.2 % (42.0-52.0); MCH 30.4 pg (26.0-34.0); MCHC 32.4 g/dL (28.0-37.0); MPV 9.7 fl. (7.2-11.1); RBC 2.26 mil/uL (4.50-6.00); RDW-CV 19.4 % (10.5-14.5); WBC 9.3 thou/uL (4.0-11.0)
[2018-05-24 06:16] LABS: INR 1.7
[2018-05-24 06:31] LABS: HEMOGLOBIN 6.9 gm/dL (14.0-18.0)
[2018-05-24 06:33] LABS: ALBUMIN 1.8 g/dL (3.4-5.0); CALCIUM 8.7 mg/dL (8.5-10.1); CREATININE 1.2 mg/dL (0.6-1.3); MAGNESIUM 2.5 mg/dL (1.8-2.4); POTASSIUM 4.9 mmol/L (3.5-5.1); TOTAL BILIRUBIN 2.2 mg/dL (<0.1-1.0); TOTAL PROTEIN 4.9 g/dL (6.4-8.2)
[2018-05-24 14:53] LABS: HEMATOCRIT 27.9 % (42.0-52.0)
[2018-05-24 14:54] LABS: HEMOGLOBIN 9.3 gm/dL (14.0-18.0)
[2018-05-25] VITALS: BP 104/53
[2018-05-25 04:00] VITALS: BP 120/54
[2018-05-25 05:40] LABS: INR 1.1; PROTIME 11.4 Seconds (9.20-11.50)
[2018-05-25 08:00] VITALS: BP 126/69
[2018-05-25 11:53] VITALS: BP 103/50
[2018-05-25] MEDS ORDERED: COLACE100 MG PO (12:18)
[2018-05-25] MEDS ORDERED: HUMALOG100 UNIT/1 SUBQ (12:19)
[2018-05-25] MEDS ORDERED: LACTULOSE20 GM/30 M PO (12:21)
[2018-05-25] MEDS ORDERED: PROTONIX40 M2 PO (12:24)
[2018-05-25] MEDS ORDERED: TYLENOL325 MG PO (12:25)
[2018-05-25] MEDS ORDERED: LEVALBUTER1.25 MG/0. INH (12:27)
[2018-05-25] MEDS ORDERED: ONDANSETRON HCL4 M2 PO (12:29)
== END 2018-05-25 14:15 | DRG 177 ==
LOC: M.ERS 12:23 → M.2W 14:21 → M.TBA-ER 14:21 → M.2W 17:33
PROVIDERS: Emergency Medicine Emergency Medical Services; Family Medicine; Internal Medicine; Internal Medicine Cardiovascular Disease; Internal Medicine Critical Care Medicine; ADMIT Internal Medicine
PROC: 5A09357 Assistance with Respiratory Ventilation, Less than 24 Consecutive Hours, Continuous Positive Airway Pressure (ICD-10-PCS; principal; 2018-05-15)
PROC: 5A09357 Assistance with Respiratory Ventilation, Less than 24 Consecutive Hours, Continuous Positive Airway Pressure (ICD-10-PCS; 2018-05-16)
PROC: 5A09357 Assistance with Respiratory Ventilation, Less than 24 Consecutive Hours, Continuous Positive Airway Pressure (ICD-10-PCS; 2018-05-17)
PROC: 5A09357 Assistance with Respiratory Ventilation, Less than 24 Consecutive Hours, Continuous Positive Airway Pressure (ICD-10-PCS; 2018-05-19)
PROC: 5A09357 Assistance with Respiratory Ventilation, Less than 24 Consecutive Hours, Continuous Positive Airway Pressure (ICD-10-PCS; 2018-05-20)
PROC: 5A09357 Assistance with Respiratory Ventilation, Less than 24 Consecutive Hours, Continuous Positive Airway Pressure (ICD-10-PCS; 2018-05-21)
PROC: 5A09357 Assistance with Respiratory Ventilation, Less than 24 Consecutive Hours, Continuous Positive Airway Pressure (ICD-10-PCS; 2018-05-22)
PROC: 5A09357 Assistance with Respiratory Ventilation, Less than 24 Consecutive Hours, Continuous Positive Airway Pressure (ICD-10-PCS; 2018-05-23)
PROC: 5A09357 Assistance with Respiratory Ventilation, Less than 24 Consecutive Hours, Continuous Positive Airway Pressure (ICD-10-PCS; 2018-05-24)
PROC: 30233N1 Transfusion of Nonautologous Red Blood Cells into Peripheral Vein, Percutaneous Approach (ICD-10-PCS; 2018-05-24)
DX: J69.0 Pneumonitis due to inhalation of food and vomit (principal); E43 Unspecified severe protein-calorie malnutrition; I50.43 Acute on chronic combined systolic (congestive) and diastolic (congestive) heart failure; J96.22 Acute and chronic respiratory failure with hypercapnia; D68.9 Coagulation defect, unspecified; I42.9 Cardiomyopathy, unspecified; Z68.1 Body mass index [BMI] 19.9 or less, adult; G93.40 Encephalopathy, unspecified; E87.0 Hyperosmolality and hypernatremia; I25.10 Atherosclerotic heart disease of native coronary artery without angina pectoris; Z66 Do not resuscitate; K74.60 Unspecified cirrhosis of liver; I48.2 Chronic atrial fibrillation; I08.3 Combined rheumatic disorders of mitral, aortic and tricuspid valves; I27.20 Pulmonary hypertension, unspecified; J38.3 Other diseases of vocal cords; D64.9 Anemia, unspecified; I25.2 Old myocardial infarction; Z87.891 Personal history of nicotine dependence; Z95.2 Presence of prosthetic heart valve; Z95.5 Presence of coronary angioplasty implant and graft; Z79.01 Long term (current) use of anticoagulants; Z79.899 Other long term (current) drug therapy; Z82.49 Family history of ischemic heart disease and other diseases of the circulatory system